=== PATIENT | female | born 1980 | race Caucasian/White ===

== ENCOUNTER 2017-07-27 05:55 | Emergency (ER) | payer MEDICAID ==
[~2017-07-27] VITALS: Ht 162.6 cm; Wt 55.0 kg
[~2017-07-27 05:55] MED LIST: CLIN300C8 PO; HYDR-3237 PO
[2017-07-27] MEDS ORDERED: HYDROmorphone 1 MG/ML, 1ML IM ONE (06:30)
[2017-07-27] MEDS ORDERED: SULFAMETH./TRIMETHOPRIM DS 800MG/160MG TABLET PO ONE (06:30)
[2017-07-27] MEDS ORDERED: CEPHALEXIN 500 MG CAPSULE PO ONE (06:30)
[2017-07-27] MEDS ORDERED: ONDANSETRON ODT 4 MG PO ONE (06:30)
[2017-07-27] MEDS ORDERED: CEPHALEXIN 500 MG CAPSULE ONE (06:34)
[2017-07-27] MEDS ORDERED: SULFAMETH./TRIMETHOPRIM DS 800MG/160MG TABLET ONE (06:34)
[2017-07-27] MEDS ORDERED: ONDANSETRON ODT 4 MG ONE (06:34)
[2017-07-27] MEDS ORDERED: HYDROmorphone 1 MG/ML, 1ML ONE (06:34)
[2017-07-27] MEDS ORDERED: LIDOCAINE 1%, 20ML ONE (07:07)
[2017-07-27] MEDS ORDERED: OXYcodone/APAP 5/325MG TABLET PO ONE (08:30)
[2017-07-27] MEDS ORDERED: OXYcodone/APAP 5/325MG TABLET ONE (08:32)
[2017-07-27 08:40] VITALS: BP 142/82
== END 2017-07-27 08:43 | disposition home or self-care (01) ==
LOC: ED 08:37
DX: L03.115 Cellulitis of right lower limb (principal); L02.415 Cutaneous abscess of right lower limb
CPT/HCPCS: 10060; 96372; 99284; J1170; Q0162

== ENCOUNTER 2020-09-08 19:35 | Inpatient (IN) | payer MEDICAID ==
[~2020-09-08] VITALS: Ht 162.6 cm; Wt 54.6 kg
[2020-09-08] MEDS ORDERED: SODIUM CHLORIDE FLUSH 10ML SYR IVF ONE (20:00)
--- NOTE | 2020-09-08 20:19 | NUR ---
PT IN GOWN IN [facility]. AWAITING ERP. PT EDUCATED ON ER PROCESS AND VERBALIZES UNDERSTANDING. LAB AT TO DRAW PT BLOOD AT THIS TIME. PT REFUSING US UNTIL SEEN BY ERP FOR PAIN MEDICATIONS.
[2020-09-08 20:34] LABS: BASOPHILS % (AUTO) 1 % (0-1); EOSINOPHILS % (AUTO) 0 % (1-7); LYMPHOCYTES % (AUTO) 22 % (22-44); MEAN CORPUSCULAR HGB CONC 32.1 g/dL (32.4-35.8); MEAN PLATELET VOLUME 6.8 fL (7.4-10.4); MONOCYTES % (AUTO) 8 % (2-9); NEUTROPHILS % (AUTO) 69 % (42-75); PLATELET COUNT 321 x10^3/uL (130-400); RED BLOOD COUNT 4.44 x10^6/uL (3.82-5.3); RED CELL DISTRIBUTION WIDTH 16.6 % (9.6-15.2)
[2020-09-08 20:38] LABS: ALANINE AMINOTRANSFERASE 40 U/L (12-78); ALBUMIN 3.4 g/dL (3.4-5.0); ANION GAP 4 mmol/L (5-15); CHLORIDE 103 mmol/L (98-107); CREATININE 1.32 mg/dL (0.55-1.02); MD NO
[2020-09-08 20:40] LABS: ALKALINE PHOSPHATASE 112 U/L (45-117); BILIRUBIN,TOTAL 0.6 mg/dL (0.2-1.0); TOTAL PROTEIN 9.2 g/dL (6.4-8.2)
[2020-09-08] MEDS ORDERED: ONDANSETRON 2MG/ML, 2ML ONE ×2 (20:42→22:33)
[2020-09-08] MEDS ORDERED: MORPHINE SULFATE 4 MG/ML, 1ML ONE ×2 (20:43→22:33)
--- NOTE | 2020-09-08 20:49 | NUR ---
pt medicated per mar for pain at this time. pt to us via jatin.
[2020-09-08] MEDS ORDERED: ONDANSETRON 2MG/ML, 2ML IVPush ONE ×2 (21:00→22:00)
[2020-09-08] MEDS ORDERED: MORPHINE SULFATE 4 MG/ML, 1ML IVPush ONE ×2 (21:00→22:00)
--- NOTE | 2020-09-08 21:55 | NUR ---
MIA FROM HEMATOLOGY CALLED TO REPORT THE NEED FOR PT REDRAW.
[2020-09-08] MEDS ORDERED: AMPICILLIN/SULBACTAM 3 GM in SODIUM CHLORIDE 0.9% 100 ML IV ONE (22:00)
[2020-09-08] MEDS ORDERED: VANCOMYCIN PER PHARMACY MC PRN ×2 (22:00→23:30)
[2020-09-08] MEDS ORDERED: VANCOMYCIN 1,200 MG in SODIUM CHLORIDE 0.9% 250 ML IV ONE (22:30)
--- NOTE | 2020-09-08 22:40 | NUR ---
PT MEDICATED PER JAN. PT TO RESTROOM TO VOID AT THIS TIME; JANETH.
[2020-09-08] MEDS ORDERED: ONDANSETRON 2MG/ML, 2ML IVPush PRN (23:00)
[2020-09-08] MEDS ORDERED: HEPARIN 5,000 UNITS/ML, 1ML IV PRN (23:00)
[2020-09-08] MEDS ORDERED: HEPARIN 25,000 UNITS/250ML PMX 250 ML IV PRN (23:00)
[2020-09-08] MEDS ORDERED: SODIUM CHLORIDE 0.9%, 500ML IVBOLUS ONE (23:00)
[2020-09-08] MEDS ORDERED: HEPARIN 5,000 UNITS/ML, 1ML IV ONE (23:00)
[2020-09-08] MEDS ORDERED: LABETALOL 5MG/ML, 20ML IVPush PRN (23:00)
[2020-09-08 23:10] LABS: INTERNATIONAL NORMALIZED RATIO > 12.00 (0.93-1.1); PROTHROMBIN TIME > 148.7 Seconds (9.6-11.5)
--- NOTE | 2020-09-08 23:11 | NUR ---
CT AWARE THAT IV PLACED AND PT READY FOR SCAN.
[2020-09-08] MEDS ORDERED: HEPARIN 5,000 UNITS/ML, 1ML ONE (23:13)
[2020-09-08] MEDS ORDERED: HEPARIN 25,000 UNITS/250ML PMX 250 ML ONE (23:13)
--- NOTE | 2020-09-08 23:19 | NUR ---
PT TO CT AT THIS TIME
[2020-09-08 23:27] LABS: AMPHETAMINE SCREEN, URINE Positive (Negative); BARBITURATE SCREEN, URINE Negative (Negative); BENZODIAZEPINE SCREEN, URINE Negative (Negative); CANNABINOID SCREEN, URINE Negative (Negative); COCAINE SCREEN, URINE Negative (Negative); METHADONE SCREEN, URINE Negative (Negative); OPIATE SCREEN, URINE Positive (Negative)
[2020-09-08 23:28] LABS: MICROSCOPIC INDICATED
[2020-09-08] MEDS: AMPICILLIN/SULBACTAM 3 GM in SODIUM CHLORIDE 0.9% 100 ML IV SCH (23:30)
--- NOTE | 2020-09-08 23:36 | NUR ---
RETURN FROM CT AT THIS TIME, HEPARIN STARTED.
--- NOTE | 2020-09-08 23:48 | NUR ---
HEPARIN HELP INR GREATER THAN 12, VANCO INFUSING. PT NOTES LAST HEROIN USE THIS AFTERNOON, HAS USED FOR 20 PLUS YEARS.
[2020-09-09] MEDS ORDERED: OMNIPAQUE 350 MG/ML, 100ML BOTTLE ONE
[2020-09-09] MEDS ORDERED: PHYTONADIONE 5 MG in SODIUM CHLORIDE 0.9% 50 ML IV ONE (01:30)
--- NOTE | 2020-09-09 02:08 | NUR ---
PT ASLEEP IN [facility] AT THIS TIME WITH CALL LIGHT WITHIN REACH. NADN. IV FLUIDS/MEDICATIONS RUNNING PER JAN AT THIS TIME.
--- NOTE | 2020-09-09 03:57 | NUR ---
PT ASLEEP IN [facility] AT THIS TIME; JANETH. PT VSS AND UPDATED IN EMR AT THIS TIME.
[2020-09-09] MEDS: AMPICILLIN/SULBACTAM 3 GM in SODIUM CHLORIDE 0.9% 100 ML IV SCH ×4 (05:30→21:22)
[2020-09-09 06:28] LABS: BASOPHILS % (AUTO) 1 % (0-1); EOSINOPHILS % (AUTO) 0 % (1-7); LYMPHOCYTES % (AUTO) 20 % (22-44); MEAN CORPUSCULAR HGB CONC 32.1 g/dL (32.4-35.8); MEAN PLATELET VOLUME 6.6 fL (7.4-10.4); MONOCYTES % (AUTO) 12 % (2-9); NEUTROPHILS % (AUTO) 67 % (42-75); PLATELET COUNT 261 x10^3/uL (130-400); RED BLOOD COUNT 3.95 x10^6/uL (3.82-5.3); RED CELL DISTRIBUTION WIDTH 16.4 % (9.6-15.2)
[2020-09-09 06:34] LABS: INTERNATIONAL NORMALIZED RATIO 2.38 (0.93-1.1)
[2020-09-09 06:37] LABS: ANION GAP 9 mmol/L (5-15); CALCIUM 8.6 mg/dL (8.5-10.1); CHLORIDE 108 mmol/L (98-107); CREATININE 1.36 mg/dL (0.55-1.02)
[2020-09-09 06:45] LABS: MD NO
--- NOTE | 2020-09-09 07:08 | NUR ---
REPORT FROM [facility] FLYNN. PT LAYING BACK IN BED ASLEEP. NAD NOTED AT THIS TIME. AWAITING BREAKFAST TRAY.
[2020-09-09] MEDS ORDERED: SENNA/DOCUSATE TABLET ONE (08:00)
[2020-09-09] MEDS: SENNA/DOCUSATE TABLET PO SCH (08:10)
--- NOTE | 2020-09-09 08:10 | NUR ---
PT HELPED UP TO BEDSIDE COMMODE AND BACK IN BED. PT MOVES INDEPENDENTLY. RESPIRATIONS EVEN AND UNLABORED ON RA.
[2020-09-09] MEDS ORDERED: MORPHINE SULFATE 4 MG/ML, 1ML ONE ×3 (08:45→16:57)
--- NOTE | 2020-09-09 09:02 | NUR ---
PT SITTING UP EATING BREAKFAST. NAD NOTED AT THIS TIME. RESPIRATIONS EVEN AND UNLABORED ON RA.
[2020-09-09] MEDS: morphine SULFATE 10 MG/ML, 1ML IVPush PRN ×4 (09:06→21:10)
--- NOTE | 2020-09-09 10:07 | NUR ---
PT LOZANO X4, HOB TO LEVEL OF COMFORT. DR LEWIS IN TO ASSESS, SHE PLANS TO CONTACT VASCULAR AND UROLOGY. AWAITING FURTHER ORDERS. LIGHTS DIMMED FOR PT COMFORT.
--- NOTE | 2020-09-09 10:36 | NUR ---
DR JAIN TO COME AND ASSESS PT THIS AFTERNOON PER DR LEWIS.
--- NOTE | 2020-09-09 11:51 | NUR ---
CALL TO PHARMACY REGARDING PT'S LEFT UPPER ARM IV SITE. ICE COMPRESS APPLIED.
--- NOTE | 2020-09-09 12:07 | NUR ---
BEDSIDE REPORT RECEIVED FROM WON LUCIO FOR TRANSFER OF PATIENT CARE.
--- NOTE | 2020-09-09 12:16 | NUR ---
DR. JAIN AT BEDSIDE TO DISCUSS POC, WILL CONTACT DR. LEWIS ABOUT PLACING CENTRAL LINE INSTEAD OF PICC.
--- NOTE | 2020-09-09 12:17 | NUR ---
CALL TO DR LEWIS REGARDING IV SITE. DR VU IN TO BEDSIDE TO ASSESS. BOTH LINES PULLED. ICE PACK APPLIED TO LEFT ARM.
--- NOTE | 2020-09-09 12:22 | NUR ---
REPORT TO WON GARCIA. DR JAIN IN TO BEDSIDE TO ASSESS PT.
[2020-09-09] MEDS ORDERED: PHARMACOKINETIC MONITORING MC PRN (12:30)
--- NOTE | 2020-09-09 13:41 | NUR ---
PATIENT RESTING IN GURNEY WITH EYES CLOSED, CONNECTED TO VITALS MACHINE, CALL LIGHT WITHIN REACH.
--- NOTE | 2020-09-09 13:57 | NUR ---
PATIENT TO IR FOR PICC PLACEMENT.
--- NOTE | 2020-09-09 14:53 | NUR ---
RAMONSYN STARTED, DELAY IN CARE DUE TO WAITING FOR PICC LINE INSERTION. PATIENT RESTING IN GURNEY, CONNECTED TO VITALS MACHINE, NO SIGNS OF ACUTE DISTRESS, CALL LIGHT WITHIN REACH. ASKING WHEN SHE CAN EAT, EXPLAINED PATIENT IS NPO UNTIL NEED FOR SURGERY IS DETERMINED.
--- NOTE | 2020-09-09 17:05 | NUR ---
PATIENT IS REQUESTING FOOD. SPOKE WITH DR. LEWIS, NO SURGERY, PATIENT CAN HAVE REGULAR DIET.
[2020-09-09] MEDS: VANCOMYCIN 1,200 MG in SODIUM CHLORIDE 0.9% 250 ML IV SCH (17:07)
--- NOTE | 2020-09-09 17:18 | NUR ---
DR. LEWIS UPDATED ON PATIENT'S STATUS, URINE IS LIGHT BROWN NO BRIGHT RED BLOOD VISUALIZED.
--- NOTE | 2020-09-09 17:19 | NUR ---
FOOD TRAY PROVIDED TO PATIENT.
--- NOTE | 2020-09-09 17:44 | NUR ---
REPORT CALLED TO WON NATION FOR TRANSFER OF PATIENT CARE.
[2020-09-09 18:19] VITALS: BP 112/77
[2020-09-09 18:20] VITALS: BP 112/77
[2020-09-09] MEDS ORDERED: SULF1TAB24 PO (18:46)
[2020-09-09] MEDS ORDERED: DOXY100T23 PO (18:46)
[2020-09-09] MEDS ORDERED: CEPH500T PO (18:46)
[2020-09-09] MEDS ORDERED: WARF-36 PO (18:46)
[2020-09-10 02:10] VITALS: BP 107/68
[2020-09-10] MEDS: morphine SULFATE 10 MG/ML, 1ML IVPush PRN ×4 (02:15→23:09)
[2020-09-10] MEDS: AMPICILLIN/SULBACTAM 3 GM in SODIUM CHLORIDE 0.9% 100 ML IV SCH ×3 (03:40→18:00)
[2020-09-10 05:24] LABS: BASOPHILS % (AUTO) 1 % (0-1); EOSINOPHILS % (AUTO) 2 % (1-7); LYMPHOCYTES % (AUTO) 28 % (22-44); MEAN CORPUSCULAR HEMOGLOBIN 25.6 pg (27.0-34.8); MEAN CORPUSCULAR HGB CONC 32.4 g/dL (32.4-35.8); MEAN PLATELET VOLUME 6.6 fL (7.4-10.4); MONOCYTES % (AUTO) 9 % (2-9); NEUTROPHILS % (AUTO) 61 % (42-75); PLATELET COUNT 235 x10^3/uL (130-400); RED BLOOD COUNT 3.36 x10^6/uL (3.82-5.3); RED CELL DISTRIBUTION WIDTH 16.1 % (9.6-15.2)
[2020-09-10 05:27] LABS: ANION GAP 3 mmol/L (5-15); CALCIUM 8.2 mg/dL (8.5-10.1); CHLORIDE 109 mmol/L (98-107)
[2020-09-10 05:29] LABS: CREATININE 0.87 mg/dL (0.55-1.02)
[2020-09-10 05:36] LABS: MD NO
[2020-09-10 06:22] LABS: INTERNATIONAL NORMALIZED RATIO 1.17 (0.93-1.1); PROTHROMBIN TIME 12.4 Seconds (9.6-11.5)
[2020-09-10 07:55] VITALS: BP 112/76
[2020-09-10] MEDS ORDERED: HEPARIN 5,000 UNITS/ML, 1ML IV ONE (08:30)
[2020-09-10] MEDS: HEPARIN 25,000 UNITS/250ML PMX 250 ML IV PRN (08:44)
[2020-09-10] MEDS: SENNA/DOCUSATE TABLET PO SCH (11:01)
[2020-09-10] MEDS: ACETAMINOPHEN 325 MG TABLET PO PRN (11:01)
[2020-09-10] MEDS: VANCOMYCIN 1,200 MG in SODIUM CHLORIDE 0.9% 250 ML IV SCH ×2 (12:25→23:09)
[2020-09-10 12:27] VITALS: BP 130/81
[2020-09-10] MEDS: HEPARIN 5,000 UNITS/ML, 1ML IV PRN ×2 (15:40→22:27)
[2020-09-10 20:30] VITALS: BP 112/66
[2020-09-11] MEDS: AMPICILLIN/SULBACTAM 3 GM in SODIUM CHLORIDE 0.9% 100 ML IV SCH ×5 (01:04→19:18)
[2020-09-11 03:35] VITALS: BP 109/63
[2020-09-11] MEDS: morphine SULFATE 10 MG/ML, 1ML IVPush PRN ×3 (04:24→19:43)
[2020-09-11 05:16] LABS: BASOPHILS % (AUTO) 1 % (0-1); EOSINOPHILS % (AUTO) 3 % (1-7); LYMPHOCYTES % (AUTO) 46 % (22-44); MEAN CORPUSCULAR HEMOGLOBIN 25.7 pg (27.0-34.8); MEAN CORPUSCULAR HGB CONC 32.4 g/dL (32.4-35.8); MEAN PLATELET VOLUME 6.7 fL (7.4-10.4); MONOCYTES % (AUTO) 11 % (2-9); NEUTROPHILS % (AUTO) 39 % (42-75); PLATELET COUNT 242 x10^3/uL (130-400); RED CELL DISTRIBUTION WIDTH 16.6 % (9.6-15.2)
[2020-09-11 05:21] LABS: CHLORIDE 110 mmol/L (98-107)
[2020-09-11 05:24] LABS: ANION GAP 3 mmol/L (5-15); CALCIUM 7.8 mg/dL (8.5-10.1); CREATININE 0.74 mg/dL (0.55-1.02)
[2020-09-11] MEDS: HEPARIN 5,000 UNITS/ML, 1ML IV PRN ×2 (05:45→12:58)
[2020-09-11 05:54] LABS: MD SCAN
[2020-09-11 08:31] VITALS: BP 108/69
[2020-09-11] MEDS: SENNA/DOCUSATE TABLET PO SCH (08:38)
[2020-09-11] MEDS: HEPARIN 25,000 UNITS/250ML PMX 250 ML IV PRN (10:30)
[2020-09-11] MEDS: VANCOMYCIN 1,200 MG in SODIUM CHLORIDE 0.9% 250 ML IV SCH ×2 (11:00→17:26)
[2020-09-11 14:55] VITALS: BP 110/72
[2020-09-11 20:09] LABS: AMPHETAMINE SCREEN, URINE Negative (Negative); BARBITURATE SCREEN, URINE Negative (Negative); BENZODIAZEPINE SCREEN, URINE Negative (Negative); CANNABINOID SCREEN, URINE Negative (Negative); COCAINE SCREEN, URINE Negative (Negative); METHADONE SCREEN, URINE Negative (Negative); OPIATE SCREEN, URINE Positive (Negative)
[2020-09-11 20:25] VITALS: BP 102/69
[2020-09-12 01:52] VITALS: BP 119/73
[2020-09-12] MEDS: HEPARIN 5,000 UNITS/ML, 1ML IV PRN (02:13)
[2020-09-12] MEDS: morphine SULFATE 10 MG/ML, 1ML IVPush PRN ×4 (03:38→22:33)
[2020-09-12] MEDS: AMPICILLIN/SULBACTAM 3 GM in SODIUM CHLORIDE 0.9% 100 ML IV SCH ×4 (03:40→21:27)
[2020-09-12 05:44] LABS: BASOPHILS % (AUTO) 1 % (0-1); EOSINOPHILS % (AUTO) 3 % (1-7); LYMPHOCYTES % (AUTO) 40 % (22-44); MEAN CORPUSCULAR HEMOGLOBIN 25.2 pg (27.0-34.8); MEAN CORPUSCULAR HGB CONC 32.1 g/dL (32.4-35.8); MEAN PLATELET VOLUME 6.7 fL (7.4-10.4); MONOCYTES % (AUTO) 9 % (2-9); NEUTROPHILS % (AUTO) 47 % (42-75); PLATELET COUNT 241 x10^3/uL (130-400); RED BLOOD COUNT 3.13 x10^6/uL (3.82-5.3); RED CELL DISTRIBUTION WIDTH 16.4 % (9.6-15.2)
[2020-09-12 05:47] LABS: MD NO
[2020-09-12 05:56] LABS: ALANINE AMINOTRANSFERASE 23 U/L (12-78); ALBUMIN 2.2 g/dL (3.4-5.0); ANION GAP 4 mmol/L (5-15); CALCIUM 7.9 mg/dL (8.5-10.1); CHLORIDE 109 mmol/L (98-107); CREATININE 0.79 mg/dL (0.55-1.02)
[2020-09-12 05:58] LABS: ALKALINE PHOSPHATASE 68 U/L (45-117); BILIRUBIN,TOTAL 0.3 mg/dL (0.2-1.0); TOTAL PROTEIN 6.5 g/dL (6.4-8.2)
[2020-09-12 07:57] VITALS: BP 122/75
[2020-09-12 07:58] VITALS: BP 130/87
[2020-09-12] MEDS: SENNA/DOCUSATE TABLET PO SCH ×2 (09:00→16:21)
[2020-09-12] MEDS: VANCOMYCIN 1,200 MG in SODIUM CHLORIDE 0.9% 250 ML IV SCH (11:00)
[2020-09-12] MEDS ORDERED: MIDAZOLAM 1 MG/ML, 5ML ONE (12:15)
[2020-09-12] MEDS ORDERED: FLUMAZENIL 0.1 MG/1 ML, 5ML ONE (12:15)
[2020-09-12] MEDS ORDERED: FENTANYL PF 100 MCG/2ML ONE (12:15)
[2020-09-12] MEDS ORDERED: NALOXONE 1 MG/ML, 2ML ONE (12:15)
[2020-09-12] MEDS ORDERED: HEPARIN 1,000 UNITS/ML, 10ML ONE (12:15)
[2020-09-12] MEDS ORDERED: LIDOCAINE 1%, 10ML ONE (12:20)
[2020-09-12] MEDS ORDERED: HEPARIN/D5W 25,000 UNITS/250 ML PREMIX IV ONE (12:37)
[2020-09-12] MEDS ORDERED: ALTEPLASE 10 MG in SODIUM CHLORIDE 0.9% 90 ML IV SCH (13:00)
[2020-09-12] MEDS: ALTEPLASE 10 MG in SODIUM CHLORIDE 0.9% 90 ML IV SCH (13:30)
[2020-09-12] MEDS: HEPARIN 25,000 UNITS/250ML PMX 250 ML IV SCH (14:30)
[2020-09-12 14:48] LABS: BASOPHILS % (AUTO) 1 % (0-1); EOSINOPHILS % (AUTO) 3 % (1-7); LYMPHOCYTES % (AUTO) 36 % (22-44); MEAN CORPUSCULAR HEMOGLOBIN 25.7 pg (27.0-34.8); MEAN CORPUSCULAR HGB CONC 32.2 g/dL (32.4-35.8); MEAN PLATELET VOLUME 6.6 fL (7.4-10.4); MONOCYTES % (AUTO) 8 % (2-9); NEUTROPHILS % (AUTO) 53 % (42-75); PLATELET COUNT 258 x10^3/uL (130-400); RED BLOOD COUNT 3.29 x10^6/uL (3.82-5.3); RED CELL DISTRIBUTION WIDTH 16.6 % (9.6-15.2)
[2020-09-12 14:52] LABS: MD NO
[2020-09-12 15:27] LABS: INTERNATIONAL NORMALIZED RATIO 1.36 (0.93-1.1); PROTHROMBIN TIME 14.4 Seconds (9.6-11.5)
[2020-09-12 16:15] LABS: % IRON SATURATION 17 % (20-55); IRON LEVEL 35 mcg/dL (50-170); TOTAL IRON BINDING CAPACITY 205 mcg/dL (250-450)
[2020-09-12] MEDS ORDERED: BISACODYL 10 MG SUPP PR PRN (19:00)
[2020-09-12] MEDS ORDERED: POLYETHYLENE GLYCOL 17 GM PACKET PO PRN (19:00)
[2020-09-12] MEDS ORDERED: MAGNESIUM HYDROXIDE 8%, 30ML UDC PO PRN (19:00)
[2020-09-13] MEDS: ALTEPLASE 10 MG in SODIUM CHLORIDE 0.9% 90 ML IV SCH ×2 (01:44→11:31)
[2020-09-13] MEDS: morphine SULFATE 10 MG/ML, 1ML IVPush PRN (01:46)
[2020-09-13] MEDS: AMPICILLIN/SULBACTAM 3 GM in SODIUM CHLORIDE 0.9% 100 ML IV SCH ×4 (03:19→21:01)
[2020-09-13 05:12] LABS: CALCIUM 8.5 mg/dL (8.5-10.1); CHLORIDE 108 mmol/L (98-107)
[2020-09-13] MEDS: VANCOMYCIN 1,200 MG in SODIUM CHLORIDE 0.9% 250 ML IV SCH ×2 (05:15→23:03)
[2020-09-13 05:20] LABS: ANION GAP 6 mmol/L (5-15); CREATININE 0.79 mg/dL (0.55-1.02)
[2020-09-13 05:48] VITALS: BP 134/86
[2020-09-13 05:54] LABS: BASOPHILS % (AUTO) 1 % (0-1); EOSINOPHILS % (AUTO) 2 % (1-7); LYMPHOCYTES % (AUTO) 22 % (22-44); MEAN CORPUSCULAR HEMOGLOBIN 25.3 pg (27.0-34.8); MEAN CORPUSCULAR HGB CONC 32.4 g/dL (32.4-35.8); MEAN PLATELET VOLUME 6.7 fL (7.4-10.4); MONOCYTES % (AUTO) 8 % (2-9); NEUTROPHILS % (AUTO) 67 % (42-75); PLATELET COUNT 247 x10^3/uL (130-400); RED BLOOD COUNT 3.29 x10^6/uL (3.82-5.3); RED CELL DISTRIBUTION WIDTH 16.3 % (9.6-15.2)
[2020-09-13 06:07] LABS: MD NO
[2020-09-13] MEDS ORDERED: POTASSIUM CHLORIDE 20 MEQ TAB.ER.PRT PO ONE (07:00)
[2020-09-13] MEDS: OXYcodone IR 5MG TABLET PO PRN ×3 (08:32→19:27)
[2020-09-13] MEDS: KETOROLAC 30 MG/1 ML IVPush PRN ×2 (08:42→19:27)
[2020-09-13] MEDS: SENNA/DOCUSATE TABLET PO SCH (09:00)
[2020-09-13] MEDS: HEPARIN 25,000 UNITS/250ML PMX 250 ML IV SCH (14:30)
[2020-09-13] MEDS ORDERED: FENTANYL PF 100 MCG/2ML ONE (15:22)
[2020-09-13] MEDS ORDERED: HEPARIN 1,000 UNITS/ML, 10ML ONE (15:22)
[2020-09-13] MEDS ORDERED: FLUMAZENIL 0.1 MG/1 ML, 5ML ONE (15:22)
[2020-09-13] MEDS ORDERED: NALOXONE 1 MG/ML, 2ML ONE (15:22)
[2020-09-13] MEDS ORDERED: PROTAMINE SULFATE 10 MG/ML, 25ML ONE (15:22)
[2020-09-13] MEDS ORDERED: MIDAZOLAM 1 MG/ML, 5ML ONE (15:22)
[2020-09-13] MEDS ORDERED: HEPARIN 5,000 UNITS/ML, 1ML IV PRN (19:30)
[2020-09-13] MEDS ORDERED: HEPARIN 25,000 UNITS/250ML PMX 250 ML IV PRN ×2 (19:30→20:00)
[2020-09-13] MEDS: HEPARIN 5,000 UNITS/ML, 1ML IV PRN (21:02)
[2020-09-14] MEDS: KETOROLAC 30 MG/1 ML IVPush PRN ×4 (03:30→21:05)
[2020-09-14] MEDS: AMPICILLIN/SULBACTAM 3 GM in SODIUM CHLORIDE 0.9% 100 ML IV SCH ×2 (03:30→08:01)
[2020-09-14] MEDS: OXYcodone IR 5MG TABLET PO PRN ×5 (03:31→21:06)
[2020-09-14 04:08] LABS: BASOPHILS % (AUTO) 1 % (0-1); EOSINOPHILS % (AUTO) 1 % (1-7); LYMPHOCYTES % (AUTO) 13 % (22-44); MEAN CORPUSCULAR HEMOGLOBIN 25.7 pg (27.0-34.8); MEAN CORPUSCULAR HGB CONC 32.8 g/dL (32.4-35.8); MEAN PLATELET VOLUME 6.7 fL (7.4-10.4); MONOCYTES % (AUTO) 6 % (2-9); NEUTROPHILS % (AUTO) 78 % (42-75); PLATELET COUNT 226 x10^3/uL (130-400); RED BLOOD COUNT 3.09 x10^6/uL (3.82-5.3); RED CELL DISTRIBUTION WIDTH 16.2 % (9.6-15.2)
[2020-09-14 04:12] LABS: MD NO
[2020-09-14 06:00] VITALS: BP 114/65
[2020-09-14] MEDS: HEPARIN 5,000 UNITS/ML, 1ML IV PRN (06:23)
[2020-09-14] MEDS: SENNA/DOCUSATE TABLET PO SCH (08:01)
[2020-09-14] MEDS: RIVAROXABAN 15 MG TABLET PO SCH ×2 (10:04→16:31)
[2020-09-14 18:40] VITALS: BP 121/80
[2020-09-15 02:36] VITALS: BP 127/75
[2020-09-15] MEDS: KETOROLAC 30 MG/1 ML IVPush PRN ×3 (05:13→20:08)
[2020-09-15] MEDS: OXYcodone IR 5MG TABLET PO PRN ×3 (05:14→20:08)
[2020-09-15 05:36] LABS: BASOPHILS % (AUTO) 1 % (0-1); EOSINOPHILS % (AUTO) 2 % (1-7); LYMPHOCYTES % (AUTO) 17 % (22-44); MEAN CORPUSCULAR HEMOGLOBIN 25.8 pg (27.0-34.8); MEAN CORPUSCULAR HGB CONC 33.1 g/dL (32.4-35.8); MONOCYTES % (AUTO) 10 % (2-9); NEUTROPHILS % (AUTO) 70 % (42-75); PLATELET COUNT 207 x10^3/uL (130-400); RED BLOOD COUNT 3.02 x10^6/uL (3.82-5.3); RED CELL DISTRIBUTION WIDTH 16.3 % (9.6-15.2)
[2020-09-15 05:47] LABS: MD NO
[2020-09-15 06:37] VITALS: BP 121/68
[2020-09-15] MEDS: RIVAROXABAN 15 MG TABLET PO SCH ×2 (08:23→16:44)
[2020-09-15] MEDS: SENNA/DOCUSATE TABLET PO SCH (08:23)
[2020-09-15 13:57] VITALS: BP 128/80
[2020-09-15 18:38] VITALS: BP 122/67
[2020-09-16 00:40] VITALS: BP 115/72
[2020-09-16] MEDS: OXYcodone IR 5MG TABLET PO PRN ×4 (04:43→19:46)
[2020-09-16] MEDS: KETOROLAC 30 MG/1 ML IVPush PRN ×2 (04:43→19:44)
[2020-09-16 06:49] VITALS: BP 116/64
[2020-09-16] MEDS ORDERED: RIVA1TAB PO (07:54)
[2020-09-16] MEDS: SENNA/DOCUSATE TABLET PO SCH (09:00)
[2020-09-16] MEDS: RIVAROXABAN 15 MG TABLET PO SCH ×2 (09:49→21:43)
[2020-09-16 12:48] VITALS: BP 149/74
[2020-09-16] MEDS ORDERED: SULF1TAB24 PO (13:02)
[2020-09-16] MEDS ORDERED: DOXY100T23 PO (13:02)
[2020-09-16] MEDS ORDERED: VANCOMYCIN PER PHARMACY MC PRN (13:30)
[2020-09-16] MEDS ORDERED: MICAFUNGIN 100 MG in SODIUM CHLORIDE 0.9% 100 ML IV SCH (13:30)
[2020-09-16] MEDS ORDERED: PHARMACOKINETIC CONSULTATION MC ONE (14:00)
[2020-09-16] MEDS ORDERED: PHARMACOKINETIC MONITORING MC PRN (14:00)
[2020-09-16] MEDS: PIPERACILLIN/TAZO/PMX 3.375GM 50 ML IV SCH ×2 (14:10→19:33)
[2020-09-16 14:11] LABS: ALBUMIN 2.6 g/dL (3.4-5.0); ANION GAP 8 mmol/L (5-15); CALCIUM 8.5 mg/dL (8.5-10.1); CHLORIDE 104 mmol/L (98-107)
[2020-09-16 14:13] LABS: BASOPHILS % (AUTO) 0 % (0-1); EOSINOPHILS % (AUTO) 2 % (1-7); LYMPHOCYTES % (AUTO) 9 % (22-44); MEAN CORPUSCULAR HEMOGLOBIN 25.2 pg (27.0-34.8); MEAN PLATELET VOLUME 7.2 fL (7.4-10.4); MONOCYTES % (AUTO) 5 % (2-9); NEUTROPHILS % (AUTO) 84 % (42-75); PLATELET COUNT 264 x10^3/uL (130-400); RED BLOOD COUNT 3.23 x10^6/uL (3.82-5.3); RED CELL DISTRIBUTION WIDTH 16.7 % (9.6-15.2)
[2020-09-16 14:15] LABS: ALANINE AMINOTRANSFERASE 36 U/L (12-78); ALKALINE PHOSPHATASE 104 U/L (45-117); BILIRUBIN,TOTAL 0.7 mg/dL (0.2-1.0); CREATININE 0.93 mg/dL (0.55-1.02); MD NO; TOTAL PROTEIN 7.3 g/dL (6.4-8.2)
[2020-09-16] MEDS: VANCOMYCIN 1,200 MG in SODIUM CHLORIDE 0.9% 250 ML IV SCH (14:32)
[2020-09-16 15:17] LABS: MICROSCOPIC NOT IND
[2020-09-16] MEDS ORDERED: POTASSIUM CHLORIDE 20 MEQ TAB.ER.PRT PO ONE (15:30)
[2020-09-16 19:50] VITALS: BP 119/77
[2020-09-17] VITALS (8 sets, daily range): BP systolic 102–158; BP diastolic 63–85
[2020-09-17] MEDS: PIPERACILLIN/TAZO/PMX 3.375GM 50 ML IV SCH ×4 (01:31→19:59)
[2020-09-17 05:45] LABS: ALANINE AMINOTRANSFERASE 33 U/L (12-78); ALBUMIN 2.2 g/dL (3.4-5.0); ANION GAP 4 mmol/L (5-15); CALCIUM 7.8 mg/dL (8.5-10.1); CHLORIDE 106 mmol/L (98-107); CREATININE 1.06 mg/dL (0.55-1.02)
[2020-09-17 05:47] LABS: ALKALINE PHOSPHATASE 118 U/L (45-117); BILIRUBIN,TOTAL 0.9 mg/dL (0.2-1.0); TOTAL PROTEIN 6.7 g/dL (6.4-8.2)
[2020-09-17 05:50] LABS: BASOPHILS % (AUTO) 0 % (0-1); EOSINOPHILS % (AUTO) 3 % (1-7); LYMPHOCYTES % (AUTO) 18 % (22-44); MEAN CORPUSCULAR HEMOGLOBIN 25.4 pg (27.0-34.8); MEAN PLATELET VOLUME 7.4 fL (7.4-10.4); MONOCYTES % (AUTO) 9 % (2-9); NEUTROPHILS % (AUTO) 71 % (42-75); PLATELET COUNT 248 x10^3/uL (130-400); RED BLOOD COUNT 2.87 x10^6/uL (3.82-5.3); RED CELL DISTRIBUTION WIDTH 16.8 % (9.6-15.2)
[2020-09-17 05:58] LABS: MD NO
[2020-09-17] MEDS: RIVAROXABAN 15 MG TABLET PO SCH (07:30)
[2020-09-17] MEDS: SENNA/DOCUSATE TABLET PO SCH (07:30)
[2020-09-17] MEDS: VANCOMYCIN 1,200 MG in SODIUM CHLORIDE 0.9% 250 ML IV SCH (08:27)
[2020-09-17] MEDS: OXYcodone IR 5MG TABLET PO PRN ×2 (12:58→20:04)
[2020-09-17] MEDS ORDERED: MICAFUNGIN 100 MG in SODIUM CHLORIDE 0.9% 100 ML IV SCH (23:00)
[2020-09-17] MEDS: DEXTROSE 5% IV SCH (23:10)
[2020-09-17] MEDS: MICAFUNGIN IV SCH (23:10)
[2020-09-17 23:38] LABS: OCCULT BLOOD NEGATIVE (NEGATIVE)
[2020-09-18 01:06] VITALS: BP 142/75
[2020-09-18] MEDS: PIPERACILLIN/TAZO/PMX 3.375GM 50 ML IV SCH ×2 (01:30→07:54)
[2020-09-18] MEDS: VANCOMYCIN 1,200 MG in SODIUM CHLORIDE 0.9% 250 ML IV SCH (02:18)
[2020-09-18 07:46] VITALS: BP 149/87
[2020-09-18] MEDS: SENNA/DOCUSATE TABLET PO SCH (07:54)
[2020-09-18] MEDS ORDERED: HEPARIN 5,000 UNITS/ML, 1ML IV ONE (09:00)
[2020-09-18] MEDS: HEPARIN 25,000 UNITS/250ML PMX 250 ML IV PRN (10:58)
[2020-09-18] MEDS: OXYcodone IR 5MG TABLET PO PRN ×2 (12:26→22:33)
[2020-09-18 13:15] VITALS: BP 123/76
[2020-09-18] MEDS: HEPARIN 5,000 UNITS/ML, 1ML IV PRN (18:35)
[2020-09-18 19:10] VITALS: BP 151/81
[2020-09-18] MEDS: ACETAMINOPHEN 325 MG TABLET PO PRN (22:32)
[2020-09-18] MEDS: DEXTROSE 5% IV SCH (22:33)
[2020-09-18] MEDS: MICAFUNGIN IV SCH (22:33)
[2020-09-19 01:04] VITALS: BP 102/71
[2020-09-19] MEDS: HEPARIN 5,000 UNITS/ML, 1ML IV PRN ×3 (01:42→20:55)
[2020-09-19 07:44] VITALS: BP 142/77
[2020-09-19 08:38] LABS: ALANINE AMINOTRANSFERASE 37 U/L (12-78); ALBUMIN 2.4 g/dL (3.4-5.0); ANION GAP 6 mmol/L (5-15); CALCIUM 8.6 mg/dL (8.5-10.1); CHLORIDE 111 mmol/L (98-107); CREATININE 0.88 mg/dL (0.55-1.02)
[2020-09-19 08:40] LABS: ALKALINE PHOSPHATASE 127 U/L (45-117); BILIRUBIN,TOTAL 0.5 mg/dL (0.2-1.0); TOTAL PROTEIN 7.1 g/dL (6.4-8.2)
[2020-09-19] MEDS: SENNA/DOCUSATE TABLET PO SCH (09:05)
[2020-09-19] MEDS: ACETAMINOPHEN 325 MG TABLET PO PRN ×2 (09:25→19:57)
[2020-09-19] MEDS: OXYcodone IR 5MG TABLET PO PRN ×2 (09:25→19:57)
[2020-09-19] MEDS ORDERED: DEXTROSE 5% IV SCH (12:00)
[2020-09-19] MEDS ORDERED: MICAFUNGIN IV SCH (12:00)
[2020-09-19] MEDS: FLUCONAZOLE 200 MG TABLET PO SCH (13:46)
[2020-09-19] MEDS: HEPARIN 25,000 UNITS/250ML PMX 250 ML IV PRN (14:10)
[2020-09-19 15:15] VITALS: BP 142/77
[2020-09-19 19:15] VITALS: BP 147/88
[2020-09-19] MEDS: MELATONIN 5 MG TABLET PO PRN (22:08)
[2020-09-20 01:17] VITALS: BP 154/81
[2020-09-20 03:06] LABS: BASOPHILS % (AUTO) 1 % (0-1); EOSINOPHILS % (AUTO) 2 % (1-7); LYMPHOCYTES % (AUTO) 30 % (22-44); MD NO; MEAN CORPUSCULAR HEMOGLOBIN 25.5 pg (27.0-34.8); MEAN CORPUSCULAR HGB CONC 31.9 g/dL (32.4-35.8); MEAN PLATELET VOLUME 7.4 fL (7.4-10.4); MONOCYTES % (AUTO) 7 % (2-9); NEUTROPHILS % (AUTO) 60 % (42-75); PLATELET COUNT 340 x10^3/uL (130-400); RED CELL DISTRIBUTION WIDTH 16.9 % (9.6-15.2)
[2020-09-20 03:17] LABS: ALANINE AMINOTRANSFERASE 37 U/L (12-78); ALBUMIN 2.7 g/dL (3.4-5.0); ANION GAP 5 mmol/L (5-15); CALCIUM 9.2 mg/dL (8.5-10.1); CHLORIDE 108 mmol/L (98-107)
[2020-09-20 03:19] LABS: ALKALINE PHOSPHATASE 139 U/L (45-117); BILIRUBIN,TOTAL 0.6 mg/dL (0.2-1.0)
[2020-09-20 07:05] VITALS: BP 149/99
[2020-09-20] MEDS: ACETAMINOPHEN 325 MG TABLET PO PRN ×3 (07:24→21:08)
[2020-09-20] MEDS: OXYcodone IR 5MG TABLET PO PRN ×5 (07:24→22:55)
[2020-09-20] MEDS: SENNA/DOCUSATE TABLET PO SCH (08:53)
[2020-09-20] MEDS: FLUCONAZOLE 200 MG TABLET PO SCH (12:00)
[2020-09-20 12:04] VITALS: BP 87/54
[2020-09-20] MEDS ORDERED: SODIUM CHLORIDE 0.9% 1,000 ML IV SCH (12:30)
[2020-09-20 16:23] VITALS: BP 107/73
[2020-09-20] MEDS: HEPARIN 25,000 UNITS/250ML PMX 250 ML IV PRN (18:09)
[2020-09-20 19:19] VITALS: BP 127/76
[2020-09-20] MEDS: MELATONIN 5 MG TABLET PO PRN (21:08)
[2020-09-20] MEDS ORDERED: DIPHENHYDRAMINE 50 MG CAPSULE PO PRN (23:30)
[2020-09-21 00:27] VITALS: BP 110/70
[2020-09-21] MEDS: HEPARIN 5,000 UNITS/ML, 1ML IV PRN ×3 (04:05→17:09)
[2020-09-21] MEDS: OXYcodone IR 5MG TABLET PO PRN ×5 (05:47→23:31)
[2020-09-21] MEDS: ACETAMINOPHEN 325 MG TABLET PO PRN ×3 (07:27→19:28)
[2020-09-21 08:02] VITALS: BP 117/74
[2020-09-21] MEDS: SENNA/DOCUSATE TABLET PO SCH (09:33)
[2020-09-21] MEDS: FLUCONAZOLE 200 MG TABLET PO SCH (12:28)
[2020-09-21 12:44] LABS: OCCULT BLOOD NEGATIVE (NEGATIVE)
[2020-09-21 13:19] VITALS: BP 111/73
[2020-09-21 19:26] VITALS: BP 124/72
[2020-09-21] MEDS: HEPARIN 25,000 UNITS/250ML PMX 250 ML IV PRN (19:33)
[2020-09-21] MEDS ORDERED: BUTALB/APAP/CAFFEINE 50MG/325MG/40MG PO ONE (20:00)
[2020-09-21] MEDS: MELATONIN 5 MG TABLET PO PRN (22:55)
[2020-09-22 00:08] VITALS: BP 118/72
[2020-09-22] MEDS: OXYcodone IR 5MG TABLET PO PRN (06:12)
[2020-09-22 06:44] VITALS: BP 96/50
[2020-09-22] MEDS: SENNA/DOCUSATE TABLET PO SCH (08:19)
[2020-09-22] MEDS: HEPARIN 5,000 UNITS/ML, 1ML IV PRN (08:44)
[2020-09-22] MEDS ORDERED: FLUC200T4 PO (10:57)
[2020-09-22] MEDS: FLUCONAZOLE 200 MG TABLET PO SCH (12:10)
[2020-09-22] MEDS ORDERED: RIVAROXABAN 15 MG TABLET PO SCH (12:12)
[2020-10-05] MEDS ORDERED: RIVAROXABAN 20 MG TABLET PO SCH (17:00)
== END 2020-09-22 13:29 | disposition home or self-care (01) | DRG 300 ==
LOC: ED 20:21 → EDIP 21:58 → 4NE 09-09 18:08 → CCU 09-12 13:35 → 3N 09-14 17:07
PROVIDERS: ADMIT Family Medicine; ATTEND Internal Medicine
PROC: 02HV33Z Insertion of Infusion Device into Superior Vena Cava, Percutaneous Approach (ICD-10-PCS; principal; 2020-09-09)
PROC: B5181ZA Fluoroscopy of Superior Vena Cava using Low Osmolar Contrast, Guidance (ICD-10-PCS; 2020-09-09)
PROC: B548ZZA Ultrasonography of Superior Vena Cava, Guidance (ICD-10-PCS; 2020-09-09)
PROC: B51B1ZZ Fluoroscopy of Right Lower Extremity Veins using Low Osmolar Contrast (ICD-10-PCS; 2020-09-12)
PROC: 3E03317 Introduction of Other Thrombolytic into Peripheral Vein, Percutaneous Approach (ICD-10-PCS; 2020-09-12)
PROC: 06HN33Z Insertion of Infusion Device into Left Femoral Vein, Percutaneous Approach (ICD-10-PCS; 2020-09-12)
PROC: 06PY33Z Removal of Infusion Device from Lower Vein, Percutaneous Approach (ICD-10-PCS; 2020-09-13)
PROC: B51B1ZZ Fluoroscopy of Right Lower Extremity Veins using Low Osmolar Contrast (ICD-10-PCS; 2020-09-13)
PROC: 30233N1 Transfusion of Nonautologous Red Blood Cells into Peripheral Vein, Percutaneous Approach (ICD-10-PCS; 2020-09-17)
DX: I82.411 Acute embolism and thrombosis of right femoral vein (principal); E87.1 Hypo-osmolality and hyponatremia; F11.20 Opioid dependence, uncomplicated; L03.115 Cellulitis of right lower limb; N17.9 Acute kidney failure, unspecified; D62 Acute posthemorrhagic anemia; B18.2 Chronic viral hepatitis C; I82.91 Chronic embolism and thrombosis of unspecified vein; D50.9 Iron deficiency anemia, unspecified; E86.1 Hypovolemia; F15.10 Other stimulant abuse, uncomplicated; R79.1 Abnormal coagulation profile; F17.210 Nicotine dependence, cigarettes, uncomplicated; K59.03 Drug induced constipation; T40.605A Adverse effect of unspecified narcotics, initial encounter; Z79.01 Long term (current) use of anticoagulants; Z82.49 Family history of ischemic heart disease and other diseases of the circulatory system; Z86.718 Personal history of other venous thrombosis and embolism; Z91.19 Patient's noncompliance with other medical treatment and regimen; Z90.49 Acquired absence of other specified parts of digestive tract
CPT/HCPCS: 36415; 37214; 75820; 84145; 87106; 87806; J3490; 36573; 71045; 71275; 74177; 80048; 80053; 80074; 80202; 80307; 81001; 81003; 82272; 82550; 82607; 82728; 83540; 83550; 83605; 83615; 83690; 83735; 84439; 84443; 85014; 85018; 85025; 85384; 85520; 85610; 85730; 86850; 86900; 86923; 87040; 87081; 87086; 87186; 87521; 93005; 93306; 99156; 99157; G0378; J0295; J1644; J1885; J2248; J2250; J2405; J2543; J2720; J2997; J3010; J3370; J3430; Q9967; C1751; C1769; C1894; G0475; J2270; J2310; J7030; J7040; J7050; P9016